=== PATIENT | male | born 1955 | race Hispanic/Latino ===

== ENCOUNTER 2018-10-01 00:25 | Emergency (ER) | payer OTHER ==
[2018-10-01 01:25] LABS: #Basophils 0.1 thou/uL (0.0-0.2); #Eosinphils 0.5 thou/uL (0.0-0.7); #Lymphocytes 1.5 thou/uL (1.20-3.40); #Monocytes 0.5 thou/uL (0.11-0.59); #Neutrophils 3.3 thou/uL (1.40-6.50); %Basophils 1.8 % (0.0-1.0); %Eosinophils 8.5 % (0.0-10.0); %Lymphocytes 25.2 % (21.0-51.0); %Monocytes 8.1 % (0.0-10.0); %Neutrophils 56.4 % (42.0-75.0); Hemoglobin 13.5 g/dL (14.0-18.0); Mean Corpuscular HGB CONC 33.4 g/dL (32.0-36.0); Mean Corpuscular Hemoglobin 30.7 pg (27.0-31.0); Mean Corpuscular Volume 92.1 fL (78.0-98.0); Mean Platelet Volume 8.3 fL (7.4-10.4); Platelet Count 203 thou/uL (130-400); RBC Distribution Width 11.7 % (11.5-14.5); White Blood Cell (WBC) Count 5.8 thou/uL (4.8-10.8)
[2018-10-01 01:46] LABS: ALT (SGPT) 15 U/L (8-55); AST (SGOT) 14 U/L (5-34); Albumin 4.6 g/dL (3.4-4.8); Alkaline Phosphatase 46 U/L (40-150); Anion Gap 14 mmol/L (10-20); BUN (Urea Nitrogen) 22 mg/dL (8.4-25.7); Bilirubin, Total 0.5 mg/dL (0.2-1.2); Calc. Creatinine Clearance 0 mL/min (70-130); Calcium 10.1 mg/dL (7.8-10.44); Carbon Dioxide 27 mmol/L (23-31); Chloride 102 mmol/L (98-107); Estimated GFR-MDRD 60; Globulin 2.9 g/dL (2.4-3.5); Glucose 118 mg/dL (80-115); Potassium 3.7 mmol/L (3.5-5.1); Protein, Total 7.5 g/dL (5.8-8.1); Sodium 139 mmol/L (136-145)
[2018-10-01 01:51] LABS: CKMB 1.3 ng/mL (0-6.6); Troponin I Less than 0.010 ng/mL (< 0.028)
[2018-10-01] MEDS ORDERED: Lidocaine Viscous Sol 2% 15 ml UD Cup ONE (02:03)
[2018-10-01] MEDS ORDERED: Mag-Al 1200 mg/1200 mg/30 ML UDCUP ONE (02:03)
[2018-10-01 02:09] LABS: CK (CPK) 149 U/L (30-200); Lipase 31 U/L (8-78)
--- NOTE | 2018-10-01 09:47 | RAD ---
TWO VIEW CHEST: INDICATION: Chest pain. FINDINGS: There is no consolidation, effusion, or pneumothorax. Cardiac silhouette is normal in size. Osseous structures reveal mild degenerative change. IMPRESSION: No focal consolidation. POS: [facility]
== END 2018-10-01 02:43 | disposition home or self-care (01) ==
LOC: ERS 00:25
DX: R13.10 Dysphagia, unspecified (principal); E11.9 Type 2 diabetes mellitus without complications; E78.5 Hyperlipidemia, unspecified; I10 Essential (primary) hypertension; Z79.84 Long term (current) use of oral hypoglycemic drugs; Z79.899 Other long term (current) drug therapy
CPT/HCPCS: 36415; 71046; 80053; 82553; 83690; 84484; 85025; 93005

== ENCOUNTER 2018-10-20 11:57 | Day surgery (SDC) | payer OTHER ==
[2018-10-19 16:36] VITALS: BMI 30.2
--- NOTE | 2018-10-20 13:26 | HP ---
SHORT-STAY HISTORY AND PHYSICAL HISTORY OF PRESENT ILLNESS: This is a 63-year-old male, who comes to the ED for evaluation of dysphagia. The patient has no reflux symptoms or dysphagia before. His symptoms started approximately one month ago. He has difficulty swallowing solid food and at times he has some painful swallowing. He has weight loss of about 23 pounds over the last 6 months. The patient came to the ED because of dysphagia. ALLERGIES: NONE. SOCIAL HISTORY: The patient used to drink alcohol heavily until May of 2018. He will drink 1 to 2 six packs of beer every day. Now he has cut down his beer to 1 beer weekly. He does not smoke. MEDICAL ILLNESSES: 1. Hypertension. 2. Diabetes mellitus. 3. Hyperlipidemia. 4. Gout. 5. Glaucoma. PHYSICAL EXAMINATION: VITAL SIGNS: Pulse is 70, blood pressure 130/70. HEENT: Conjunctiva clear. CARDIOVASCULAR SYSTEM: First and second heart sounds normal. LUNGS: Clear to auscultation. ABDOMEN: Soft. No organomegaly. No tenderness. No mass. EXTREMITIES: Reveal no edema. ADMITTING DIAGNOSIS: A 63-year-old male with a history of weight loss and dysphagia. PLAN: EGD and possible dilation. Job ID: [id number]
[2018-10-20] MEDS ORDERED: PROPOFOL 200 MG/20 ML VIAL ONE (18:37)
[2018-10-20] MEDS ORDERED: Lidocaine 1% PF 5 ML VIAL ONE (18:37)
--- NOTE | 2018-10-20 22:09 | OP ---
DATE OF PROCEDURE: 10/20/2018 PROCEDURES PERFORMED: 1. Esophagogastroduodenoscopy with biopsy. 2. Esophageal dilation with a balloon size 15 to 18 mm, stage II for 2 minutes. 3. Passage of 48-Welsh Herrera dilator. PREOPERATIVE DIAGNOSES: Dysphagia, odynophagia, and weight loss. POSTOPERATIVE DIAGNOSES: 1. No esophageal stricture or any esophagitis seen. The esophageal lumen is open. I do not see pathology for the painful swallowing. 2. Gastric ulcer in gastric antrum measuring approximately 1 cm. 3. Normal duodenum. DESCRIPTION OF PROCEDURE: The patient was placed on his left lateral position and was given sedation by Anesthesia Department. Pentax video gastroscope under direct vision was passed down the oropharynx past the junction into the stomach. Although the patient complains of dysphagia to solid food, a lot of severe painful swallowing. On endoscopy, the esophageal lumen was open and I did not see any pathology for painful swallowing. The mucosa appeared completely normal. The GE junction with questionable narrowing, but however, the scope was advanced into the stomach without any difficulty. Retroflexion failed to show any pathology in the fundus or cardia. In the gastric body, no pathology seen. The gastric antrum showed a linear ulceration measuring approximately 1 cm. The biopsy obtained from the gastric antrum and gastric body. In the duodenal bulb and descending duodenum, no pathology seen. A Bard balloon size 15 to 18 mm placed into the stomach under endoscopic guidance. The scope was carefully withdrawn back to esophagus under endoscopic guidance. The balloon was inflated at stage I for 2 minutes. However, I would not see any mucosal friability and in fact balloon can block from stomach into the esophagus with difficulty. The balloon was inflated at stage II for 2 minutes and again the same thing happened and I did not see any definite stricture. Because of the above reason, a scope and the balloon. A Bard balloon size 48-Welsh in diameter passed down with no resistance at all. DISCHARGE PLANNING: This is a 63-year-old [place] male who presents with dysphagia, painful swallowing, and history of weight loss. Surprisingly, EGD showed no esophageal pathology. He did have a gastric ulcer. The patient underwent EGD and empiric dilation and a size 48-Welsh Herrera dilator passed down with no resistance. DISCHARGE INSTRUCTIONS: 1. Continue pantoprazole 40 once a day. 2. We will plan to obtain a barium swallow and obviously a CAT scan because the EGD was basically negative for the dysphagia. Job ID: [id number]
== END 2018-10-20 15:55 | disposition home or self-care (01) ==
LOC: SDC 11:57
PROVIDERS: ATTEND Internal Medicine Gastroenterology
PROC: 0DB68ZX Excision of Stomach, Via Natural or Artificial Opening Endoscopic, Diagnostic (ICD-10-PCS; principal; 2018-10-20)
PROC: 0D758ZZ Dilation of Esophagus, Via Natural or Artificial Opening Endoscopic (ICD-10-PCS; principal; 2018-10-20)
PROC: 0D757ZZ Dilation of Esophagus, Via Natural or Artificial Opening (ICD-10-PCS; principal; 2018-10-20)
DX: K29.50 Unspecified chronic gastritis without bleeding (principal); B96.81 Helicobacter pylori [H. pylori] as the cause of diseases classified elsewhere; K25.9 Gastric ulcer, unspecified as acute or chronic, without hemorrhage or perforation; R13.10 Dysphagia, unspecified; I10 Essential (primary) hypertension; E11.9 Type 2 diabetes mellitus without complications; M10.9 Gout, unspecified; E78.5 Hyperlipidemia, unspecified; R63.4 Abnormal weight loss; Z68.30 Body mass index [BMI] 30.0-30.9, adult; Z79.82 Long term (current) use of aspirin; Z79.84 Long term (current) use of oral hypoglycemic drugs; Z79.899 Other long term (current) drug therapy
CPT/HCPCS: 88305; 88312; J2001; J2704

== ENCOUNTER 2018-11-03 12:48 | Outpatient (CLI) | payer OTHER ==
--- NOTE | 2018-11-03 13:36 | RAD ---
CHEST TWO VIEWS: History: Difficulty swallowing. Dysphagia. FINDINGS: The heart size is normal. The lungs are well expanded without focal areas of consolidation, pneumotho rax or pleural effusions. There are degenerative changes in the spine. No significant interval change s are seen since 10-01-18. IMPRESSION: No radiographic evidence of acute cardiopulmonary process. POS: OFF
== END 2018-11-03 12:49 | disposition home or self-care (01) ==
LOC: SCSRAD 12:48
PROVIDERS: ATTEND Internal Medicine Gastroenterology
DX: R13.10 Dysphagia, unspecified (principal)
CPT/HCPCS: 71046

== ENCOUNTER 2018-12-27 10:47 | Outpatient (CLI) | payer OTHER ==
--- NOTE | 2018-12-29 16:35 | RAD ---
MODIFIED BARIUM SWALLOW IN THE PRESENCE OF SPEECH PATHOLOGIST: 12/29/18 HISTORY: Feeding difficulties, dysphagia, unspecified. In the presence of a speech pathologist, the patient was administered puree, nectar thick, thin liqui d, mechanical soft, regular texture consistencies as well as a barium tablet. FINDINGS: There is residue noted in the vallecula and piriform sinuses. There is no evidence of penetration and aspiration. IMPRESSION: No evidence of penetration or aspiration. Code T POS: [facility]
== END 2018-12-27 10:48 | disposition home or self-care (01) ==
PROVIDERS: ATTEND Otolaryngology Plastic Surgery within the Head & Neck
DX: R13.10 Dysphagia, unspecified (principal); R63.3 Feeding difficulties
CPT/HCPCS: 74230

== ENCOUNTER 2019-02-09 07:25 | Outpatient (CLI) | payer OTHER ==
--- NOTE | 2019-02-09 08:43 | RAD ---
FXR Barium Swallow Esophagus History: [Dysphagia] Comparison: None. Findings: The patient was initially given gas-forming crystals. Patient tolerated this well. Next patient was given thick liquid barium. The primary and secondary peristalsis was extremely poor. There is minimal passage of contrast without the assistance of gravity. Numerous tertiary contractio ns. There is diffuse esophageal spasm. No normal controlled primary and secondary peristalsis. There is reflux contrast. The diffuse esophageal spasm density appearance of strictures although a barium t ablet did pass. Next patient is put in the MARADIAGA position and given thin liquid barium to continuously drink. This was cut short and the patient was only able to take a very limited amount of swallows without the feeling of throwing up. Contrast did not pass through the esophagus in the MARADIAGA oblique position into the sto mach before the patient had to be put upright for the contrast to pass. Impression: Severe dysphagia with lack of coordinated primary and secondary peristalsis with numerous tertiary contractions. There is diffuse esophageal spasm and contrast was unable to pass through the esophagus without the assistance of gravity. Spasm caused narrowing of the esophagus although no str icture is felt to be likely as a barium tablet did pass after drinking water. Fluoroscopy time: 1.3 minutes Dose area product: 16.812 Gycm2
== END 2019-02-09 07:26 | disposition home or self-care (01) ==
LOC: RAD 07:25
PROVIDERS: ATTEND Internal Medicine Gastroenterology
DX: R13.10 Dysphagia, unspecified (principal); K22.4 Dyskinesia of esophagus
CPT/HCPCS: 74220

== ENCOUNTER → 2019-02-15 | Day surgery (SDC) | payer OTHER | LOC: ENDO/OP 07:59 | PROVIDERS: ATTEND Internal Medicine Gastroenterology | DX: R13.10 Dysphagia, unspecified (principal) | CPT/HCPCS: 91010 ==

== ENCOUNTER 2019-12-01 09:00 | Outpatient (CLI) | payer MEDICARE, OTHER ==
--- NOTE | 2019-12-01 10:13 | CT ---
CTA OF THE CHEST WITH IV CONTRAST UTILIZING AN AORTIC ANEURYSM PROTOCOL AND 3-D REFORMATTED IMAGING INDICATION: History of aneurysm identified on an outpatient ultrasound of the thoracic aorta. Some di fficulty breathing. COMPARISON: CTA of the chest dated August 20, 2013 FINDINGS: Aorta: No acute aortic stenosis, occlusion or aneurysmal formation demonstrated. The ascending aorta measures 3.4 cm. The aortic arch measures 2.8 cm. The descending thoracic aorta measures 2.7 cm. The suprarenal abdominal aorta measures 2.1 cm. The visualized celiac, SMA and renal arteries are pat ent. Central pulmonary artery: No central pulmonary embolus demonstrated. Additional thorax findings: No suspicious pulmonary nodule, consolidation or pneumothorax is evident. Pleural based nodule in the right lower lobe on image 58 of series 3 is stable since 2013. No enlarged lymph nodes are evident within the mediastinum, hilar or axillary regions. Additional abdominal findings: No acute abnormality. Osseous structures: No acute osseous abnormality. There is scattered degenerative and osteoarthritic change present. IMPRESSION: 1. No aneurysmal dilatation seen involving the thoracic aorta.
[2019-12-01] MEDS ORDERED: Iopamidol-370 76% 500 ML 1 ML ONE (14:28)
== END 2019-12-01 09:01 | disposition home or self-care (01) ==
LOC: BICCT 09:00
PROVIDERS: ATTEND Internal Medicine Cardiovascular Disease
DX: I71.2 Thoracic aortic aneurysm, without rupture (principal)
CPT/HCPCS: 71275; Q9967

== ENCOUNTER 2022-08-07 12:06 | Outpatient (CLI) | payer MEDICARE ==
[2022-08-07 16:36] LABS: Anion Gap 16 mmol/L (10-20); BUN (Urea Nitrogen) 32 mg/dL (8.4-25.7); Calc. Creatinine Clearance 0 mL/min (70-130); Calcium 9.4 mg/dL (7.8-10.44); Carbon Dioxide 22 mmol/L (23-31); Chloride 104 mmol/L (98-107); Estimated GFR 79; Glucose 99 mg/dL (80-115); Sodium 138 mmol/L (136-145)
== END 2022-08-07 12:07 | disposition home or self-care (01) ==
LOC: LABBT 12:06
PROVIDERS: ATTEND Surgery
DX: Z01.818 Encounter for other preprocedural examination (principal); Z20.822 Contact with and (suspected) exposure to COVID-19
CPT/HCPCS: 80048; 87811; 93005; 93010

== ENCOUNTER 2022-08-12 10:25 | Day surgery (SDC) | payer MEDICARE ==
[2022-08-08 11:21] VITALS: BMI 28.4
[2022-08-12 11:21] LABS: #Basophils 0.1 thou/uL (0.0-0.2); #Eosinphils 0.3 thou/uL (0.0-0.7); #Lymphocytes 1.3 thou/uL (1.20-3.40); #Monocytes 0.4 thou/uL (0.11-0.59); #Neutrophils 3.2 thou/uL (1.40-6.50); %Basophils 1.6 % (0.0-1.0); %Lymphocytes 24.4 % (21.0-51.0); %Monocytes 7.7 % (0.0-10.0); %Neutrophils 60.4 % (42.0-75.0); Hemoglobin 14.7 g/dL (14.0-18.0); Mean Corpuscular HGB CONC 34.2 g/dL (32.0-36.0); Mean Corpuscular Hemoglobin 32.7 pg (27.0-31.0); Mean Corpuscular Volume 95.6 fL (78.0-98.0); Mean Platelet Volume 8.7 fL (7.4-10.4); Platelet Count 174 thou/uL (130-400); RBC Distribution Width 11.6 % (11.5-14.5); White Blood Cell (WBC) Count 5.3 thou/uL (4.8-10.8)
[2022-08-12] MEDS ORDERED: Bupivacaine/Epinephrine 0.25% 30 ML VIAL ONE (13:44)
[2022-08-12] MEDS ORDERED: fentaNYL PF 100 MCG/2 ML SYRINGE ONE (13:45)
[2022-08-12] MEDS ORDERED: CEFAZOLIN 2 GM VIAL ONE (13:49)
[2022-08-12] MEDS ORDERED: Sodium Chloride 0.9% 100 ML ONE (13:49)
[2022-08-12] MEDS ORDERED: Lidocaine 1% MPF 2 ML VIAL ONE (14:02)
[2022-08-12] MEDS ORDERED: PROPOFOL 200 MG/20 ML VIAL ONE (14:02)
[2022-08-12] MEDS ORDERED: Glycopyrrolate 0.2 MG/ML 5 ML SYRINGE ONE (14:02)
[2022-08-12] MEDS ORDERED: Rocuronium Bromide 10 MG/ML (10ML VIAL) ONE (14:02)
[2022-08-12] MEDS ORDERED: NEOSTIGMINE 3 MG/3 ML SYR 3 MG/3 ML SYRINGE ONE (14:02)
[2022-08-12] MEDS ORDERED: Ondansetron PF 4 MG/2 ML Vial ONE (14:02)
[2022-08-12] MEDS ORDERED: Labetalol HCl 100 MG/20 ML VIAL ONE (14:02)
[2022-08-12] MEDS ORDERED: Dexamethasone 20 MG/5 ML VIAL ONE (14:02)
[2022-08-12] MEDS ORDERED: Fentanyl 100 MCG/2 ML VIAL ONE (15:22)
[2022-08-12] MEDS ORDERED: HYDROcodone/Acetaminophen 5/325 mg Tablet ONE (16:34)
== END 2022-08-12 17:35 | disposition home or self-care (01) ==
LOC: SDC 10:25
PROVIDERS: ATTEND Surgery
PROC: 0YU54JZ Supplement Right Inguinal Region with Synthetic Substitute, Percutaneous Endoscopic Approach (ICD-10-PCS; principal; 2022-08-12)
PROC: 8E0W4CZ Robotic Assisted Procedure of Trunk Region, Percutaneous Endoscopic Approach (ICD-10-PCS; 2022-08-12)
DX: K40.90 Unilateral inguinal hernia, without obstruction or gangrene, not specified as recurrent (principal); I10 Essential (primary) hypertension; E11.9 Type 2 diabetes mellitus without complications; E78.5 Hyperlipidemia, unspecified; M10.9 Gout, unspecified; K21.9 Gastro-esophageal reflux disease without esophagitis; Z79.84 Long term (current) use of oral hypoglycemic drugs; Z79.899 Other long term (current) drug therapy
CPT/HCPCS: 49650; 85025; C1781; J0690; J1100; J2405; J2704; J3010; J3490